=== PATIENT | male | born 1995 | race Caucasian/White ===

== ENCOUNTER 2017-03-02 12:32 | Emergency (ER) | payer BC ==
[~2017-03-02] VITALS: Ht 200.7 cm; Wt 107.0 kg
[~2017-03-02 12:32] MED LIST: NOHOMEMEDICATIONS
[2017-03-02] MEDS ORDERED: TRIAMCINOLONE A80 G2 TOP (13:07)
[2017-03-02] MEDS ORDERED: BENADRYL25 MG PO (13:07)
[2017-03-02 13:14] VITALS: BP 147/83
== END 2017-03-02 13:15 ==
LOC: ER 12:32
DX: L23.7 Allergic contact dermatitis due to plants, except food (principal); Z88.8 Allergy status to other drugs, medicaments and biological substances